=== PATIENT | female | born 1990 | race Caucasian/White ===

== ENCOUNTER 2017-05-06 09:29 | Inpatient (IN) ==
[2017-05-06] MEDS ORDERED: LIDOCAINE 1% (10mg/ml) 2mL INJ PF SDV ID PRN (09:46)
[2017-05-06] MEDS ORDERED: CALCIUM CARBONATE Chewable 500mg TABLET PO PRN ×2 (09:46→17:40)
[2017-05-06] MEDS ORDERED: MAG-AL + SIM ORAL LIQUID 30ml PO PRN ×2 (09:46→17:40)
[2017-05-06] MEDS ORDERED: METHYLERGONOVINE 0.2 MG/ML INJECTION IM PRN (09:46)
[2017-05-06] MEDS ORDERED: ACETAMINOPHEN 500 MG TABLET PO PRN ×2 (09:46→17:40)
[2017-05-06] MEDS ORDERED: CARBOPROST 250 MCG/ML INJECTION IM PRN (09:46)
[2017-05-06 09:56] VITALS: BMI 23.7
[2017-05-06] MEDS: LR 1,000 ML IV PRN ×3 (10:10→12:22)
[2017-05-06] MEDS ORDERED: NALOXONE 0.4 MG/ML INJECTION IVP PRN (10:31)
[2017-05-06] MEDS ORDERED: ONDANSETRON 4 MG/2 ML INJECTION IVP PRN (10:31)
[2017-05-06] MEDS ORDERED: ROPIVACAINE 1% 10MG/ML INJ 200 MG, SUFentanil 50 MCG in NS 100 ML EPI PRN (10:31)
[2017-05-06] MEDS ORDERED: DiphenhydrAMINE 50 MG/ML INJECTION IVP PRN (10:31)
--- NOTE | 2017-05-06 10:31 | Anesthesia Preoperative Report ---
Anesthesia Epidural/Spinal Rec - Date and Time Date: 05/06/17 Procedure: Labor Epidural Plan: Epidural - Vital Signs Vital Signs: Temperature 97.3 F 05/06/17 10:16 Pulse Rate 87 05/06/17 10:16 Respiratory Rate 20 05/06/17 10:16 Blood Pressure 119/80 05/06/17 10:16 Pulse Oximetry 97 05/06/17 10:16 /Para: P:0 Heart Rate: 152 - Medictaions & Allergies Inpatient Medications: Current Medications Acetaminophen (Tylenol) 500 - 1,000 mg PO Q4H PRN PRN Reason: Pain Al Hydroxide/Mg Hydroxide (Maalox Plus) 30 ml PO Q3H PRN PRN Reason: Indigestion Calcium Carbonate (Tums) 500 - 1,000 mg PO Q2H PRN PRN Reason: Indigestion Carboprost Tromethamine (Hemabate) 250 mcg IM O PRN PRN Reason: .Downtime Lactated Ringer's (Lactated Ringers) 1,000 mls @ 1,000 mls/hr IV .Q1H PRN PRN Reason: as directed Last Admin: 05/06/17 10:10 Dose: 1,000 mls/hr Lidocaine HCl (Xylocaine-Mpf 1% Vial) 0.2 mg ID O PRN PRN Reason: IV Start Methylergonovine Maleate (Methergine) 0.2 mg IM O PRN Misoprostol (Cytotec) 800 mcg DC ONCE PRN Allergies/Adverse Reactions: Allergies Allergy/AdvReac Type Severity Reaction Status Date / Time No Known Allergies Allergy Verified 04/21/17 09:29 - Home Medications Home Medications: Home Medications Medication Instructions Recorded Confirmed Type Vitamins 04/21/17 History - Medical History Gastrointestional: Reports: Gastroesophageal Reflux Disease - Surgical History Anesthesia Reactions: None Hx Family Anesthesia Reaction: No History of Motion Sickness: No - Social History Smoking Status: Never smoker Second Hand Exposure: No Substance Use Type: does not use Alcohol Intake Frequency: does not drink Hx Chewing Tobacco Use: No - Pertinent Findings Lab Data: CBC and BMP 05/06/17 10:09 - Physical Exam Respiratory Exam: lungs clear, bilateral breath sounds equal Cardiovascular Exam: regular rate and rhythm - Airway Assessment Mallampati Score: I TMD: 3 Fingerbreadths Neck Extension: good Overall Assessment: no airway concerns - ASA ASA Score: 2 - Discussion Discussion: Discussed risks/options/alternatives of anesthesia and questions answered. Patient consents. Nursing pain assessment noted. Anesthesia Discussion: spouse Attestation Statement: Prior to the delivery of any anesthetic medication, I examined the patient, developed the plan, obtained the patient's consent and discussed the risk and benefits of the procedure with the patient/guardian.
[2017-05-06] MEDS ORDERED: HYDROCORTISONE 2.5% CREAM 30gm RECTALLY PRN (17:40)
[2017-05-06] MEDS ORDERED: OXYTOCIN DRIP 30 UNIT/500 ML ML IV SCH (17:40)
[2017-05-06] MEDS ORDERED: SALINE FLUSH 10ml SYRINGE IVF PRN (17:40)
[2017-05-06] MEDS ORDERED: DiphenhydrAMINE 25 MG CAPSULE PO PRN (17:40)
--- NOTE | 2017-05-06 18:57 | Labor and Delivery Note ---
DATE OF DELIVERY 05/06/2017 NARRATIVE Ms. Montelongo progressed very well in first stage of labor. She pushed with excellent effort for about 20 minutes, delivering the head in the OA presentation. Baby was bulb suctioned on the perineum. There was a loose nuchal cord x 1 that was reduced. With a further push she delivered the baby in total. Baby was then further bulb suctioned and placed on mother's abdomen. After just over two minutes the cord was soft and flat. It was doubly clamped and cut by the baby's father, Harris. This is a liveborn female with Apgars of 8/9/9. She weighed 6 pounds, 14.2 ounces. After about five minutes the placenta delivered spontaneously intact. It had a normal configuration and normal-appearing three-vessel cord. There was a second-degree midline laceration was repaired in the usual fashion with a 2-0 Vicryl. There were bilateral superficial periurethral lacerations that were hemostatic and were therefore not repaired. Total blood loss was approximately 400 mL. At the time of this dictation mother and baby are doing well. MAURICIO
[2017-05-06 19:22] VITALS: O2SAT 99
[2017-05-06] MEDS: IBUPROFEN 800 MG TABLET PO SCH ×2 (20:17→21:46)
--- NOTE | 2017-05-06 22:06 | Anesthesia Postoperative Note ---
- Date and Time Date: 05/06/17 Time: 22:00 - Status Patient Participated in Evaluation: Patient Participated in Person Vital Signs: Temperature 98.0 F 05/06/17 21:15 Pulse Rate 73 05/06/17 21:15 Respiratory Rate 20 05/06/17 21:15 Blood Pressure 116/73 05/06/17 21:15 Pulse Oximetry 99 05/06/17 17:45 Oxygen Delivery Method Room Air Respiratory Function: Airway Patent, Regular Respirations Cardiovascular Function: Regular Pulse Mental Status: Alert and Oriented Pain Intensity: 2 (mild back soreness) Hydration: Taking PO Fluids Complications During Recover: None Apparent Post Anesthesia Care Notes: ambulating without problems - Follow-Up Instructions Instructions: Per Surgeon
--- NOTE | 2017-05-07 06:10 | OB/GYN Progress Note ---
OB-PP Progress Note - General PPD1 Maternal Group B Strep: Negative Maternal blood type: O+ Maternal Rubella Status: Immune - Subjective Date: 05/07/17 Lochia: Minimal Pain: contolled Voiding: voiding - Objective Vital Signs: Last Vital Signs Temp 98.0 F 05/06/17 21:15 Pulse 73 05/06/17 21:15 Resp 20 05/06/17 21:15 BP 116/73 05/06/17 21:15 Pulse Ox 99 05/06/17 17:45 Urine Output: good General: alert and oriented Abdomen: fundus firm, non-tender Extremities: non-tender Laboratory: Laboratory Results - last 24 hr 05/06/17 05/06/17 10:09 10:09 WBC 7.4 RBC 4.26 Hgb 12.5 Hct 37.2 MCV 87.3 MCH 29.3 MCHC 33.6 RDW Std Deviation 41.9 Plt Count 231 MPV 10.7 Blood Type O Positive Antibody Screen Negative - Assessment (1) (spontaneous vaginal delivery) Status: Acute - Plan Plan: routine care, discharge home, continue PNV
[2017-05-07] MEDS ORDERED: HYDROCODONE/APAP 5mg/325mg TABLET PO PRN (06:13)
--- NOTE | 2017-05-07 06:13 | Discharge Instructions ---
Discharge Plan - Med Rec/Dispo Prescriptions: New Ibuprofen [Motrin] 800 mg PO Q8H #30 tablet Hydrocodone/APAP 5/325 [Hulen 5/325] 1 - 2 tab PO Q4H PRN #20 tablet PRN Reason: Pain Continue Vitamins Discharge Instructions/Outpatient Orders: Final Provider Discharge Instructions Location: Determined By Patient - Disposition 01 Discharged Home, Self-Care
[2017-05-07] MEDS: IBUPROFEN 800 MG TABLET PO SCH ×2 (06:14→14:35)
[2017-05-07] MEDS ORDERED: DOCUSATE CALCIUM 240 MG CAPSULE PO SCH (09:00)
[2017-05-07] MEDS ORDERED: FERROUS SULFATE 324 MG TABLET PO SCH (09:00)
[2017-05-07] MEDS ORDERED: PRENATAL VITAMIN TABLET PO SCH (09:00)
[2017-05-07 17:28] VITALS: BP 121/78; PULSE 65; RESP 18; TEMP 98.1
== END 2017-05-07 19:50 | disposition home or self-care (01) | DRG 775 ==
LOC: MC 09:29 → OBOBS 09:29 → MC 09:50
PROVIDERS: ADMIT Obstetrics & Gynecology; ATTEND Obstetrics & Gynecology